=== PATIENT | male | born 1985 | race Caucasian/White ===

== ENCOUNTER 2017-09-28 14:49 | Emergency (ER) | payer BC, OTHER ==
[~2017-09-28 14:49] MED LIST: ASPI-390 PO; CIPR-255 PO; IBUP-103 PO; SUMA100T16 PO; [UNRECOGNIZED DRUG - CODE] PO
[2017-09-28 14:54] VITALS: TEMP 36.7
[2017-09-28] MEDS ORDERED: FLNIN/ NAE (15:54)
[2017-09-28] MEDS ORDERED: AMT25 PO (15:54)
[2017-09-28] MEDS ORDERED: IMT100 PO (15:54)
[2017-09-28] MEDS ORDERED: PHEN-876 PO (16:10)
[2017-09-28] MEDS ORDERED: CIPR-255 PO (16:10)
--- NOTE | 2017-09-28 16:10 | EMERGENCY ROOM VISIT NOTE ---
History First contact with patient: 15:03 Chief Complaint: URINARY SYMPTOMS Stated Complaint: BELIEVE TO HAVE UTI History of Present Illness The patient is a 32 year old male who presents to the Emergency Room with complaints of urinary symptoms. The patient reports that he woke up this morning and noticed that he felt increased urgency to urinate. He denies any dysuria. He states that he feels like he has a full bladder and is not emptying his bladder fully. He rates this discomfort a 4/10. He denies any pain in his abdomen or back. He does report he has passed a kidney stone before , but never had any symptoms until he passed the stone. He is in a monogamous relationship and denies any concern for STI's. He denies any history of urinary issues. He denies any fevers or penile discharge. Review of Systems A complete 10 point review of systems was reviewed with the patient with pertinent positives and negatives as per history of present illness. All else were negative. Past Medical/Surgical History Medical Problems: (1) Diverticulitis (2) Migraine Surgical Problems: (1) H/O laminectomy (2) S/P appendectomy (3) S/P tonsillectomy Family History No pertinent family history Social History Smoking Status: Never Smoker Alcohol Use: none Drug Use: none Marital Status: Housing Status: lives with family Occupation Status: employed Current/Historical Medications Scheduled Amitriptyline HCl (Amitriptyline HCl), 25 MG PO HS Ciprofloxacin Hcl (Cipro), 500 MG PO BID Ondasetron Odt (Zofran Odt), 4 MG SL Q6H Phenazopyridine HCl (Pyridium), 200 MG PO TID Tamsulosin Hcl (Flomax), 0.4 MG PO DAILY Scheduled PRN Vtdnfyp-Mxyuywuqgdrhh-Shqxnrcy (Excedrin Migraine), 1 TAB PO UD PRN for Migraine Fluticasone Propionate (Fluticasone Propionate), 2 SPRAYS JOSE DAILY PRN for Allergy Symptoms Oxycodone Ir (Roxicodone Ir), 1-2 TAB PO Q4H PRN for Pain Sumatriptan Succinate (Imitrex), 100 MG PO Q2H PRN for Migraine Physical Exam Vital Signs Date Time Temp Pulse Resp B/P (MAP) Pulse Ox O2 Delivery O2 Flow Rate FiO2 09/28/17 16:32 80 16 153/89 98 09/28/17 14:54 36.7 69 18 135/99 99 Room Air Physical Exam VITALS: Vitals are noted on the nurse's note and reviewed by myself. Vital signs stable. GENERAL: This is a 32-year-old male, in no acute distress, nondiaphoretic, well- developed well-nourished. HEART: Regular rate and rhythm without murmurs gallops or rubs. LUNGS: Clear to auscultation bilaterally without wheezes, rales or rhonchi. ABDOMEN: Soft, nontender to palpation. MUSCULOSKELETAL: No CVA tenderness. NEURO: Patient was alert and oriented to person place and time. Medical Decision & Procedures Laboratory Results Test 09/28/17 15:04 Urine Color DK YELLOW Urine Appearance CLEAR (CLEAR) Urine pH 6.0 (4.5-7.5) Urine Specific [place] 1.027 (1.000-1.030) Urine Protein 1+ (NEG) Urine Glucose (UA) NEG (NEG) Urine Ketones NEG (NEG) Urine Occult Blood 3+ (NEG) Urine Nitrite NEG (NEG) Urine Bilirubin NEG (NEG) Urine Urobilinogen NEG (NEG) Urine Leukocyte Esterase NEG (NEG) Urine WBC (Auto) 1-5 /hpf (0-5) Urine RBC (Auto) >30 /hpf (0-4) Urine Hyaline Casts (Auto) 0 /lpf (0-5) Urine Epithelial Cells (Auto) 5-10 /lpf (0-5) Urine Bacteria (Auto) NEG (NEG) Medications Administered Medications (Trade) Dose Ordered Sig/Alexandra Route Start Time Stop Time Status Last Admin Dose Admin Ciprofloxacin (Cipro 500MG Home Pack) 1 homepack UD ONCE PO 09/28/17 16:15 09/28/17 16:16 DC 09/28/17 16:25 1 HOMEPACK Phenazopyridine HCl (Phenazopyridine HCl 200MG Home Pack) 1 homepack UD ONCE PO 09/28/17 16:15 09/28/17 16:16 DC 09/28/17 16:25 1 HOMEPACK Medical Decision Differential diagnosis includes UTI, kidney stone, STI, prostatitis, among others. The patient was evaluated as above. He presents with a feeling of increased urgency to urinate. He has no dysuria. He has no pain. Bladder scan showed no retention. Urinalysis revealed 3+ blood and 5-10 epithelial cells. I discussed with the patient that this could possibly represent an early kidney stone, although would not recommend further testing given the patient has no pain at this time. Patient will be covered with ciprofloxacin in case this is an early hemorrhagic cystitis. Culture was sent and is pending. He was advised to follow-up with his PCP this week for a recheck. He verbalized understanding of my assessment and treatment plan and was discharged home in good condition. Medication Reconcilliation Current Medication List: was personally reviewed by me Blood Pressure Screening Patient's blood pressure: Elevated blood pressure Blood pressure disposition: Elevated BP felt to be situational Impression Primary Impression: Symptoms of urinary tract infection Departure Information Dispostion Home / Self-Care Condition GOOD Prescriptions Ciprofloxacin Hcl (CIPRO) 500 Mg Tab 500 MG PO BID for 7 Days, #14 TAB Prov: Clarice Patel PA-C 09/28/17 Phenazopyridine HCl (Pyridium) 200 Mg Tab 200 MG PO TID for 2 Days, #6 TAB Prov: Clarice Patel PA-C 09/28/17 Referrals No Doctor, Assigned (PCP) Patient Instructions [facility] Additional Instructions You have been treated in the Emergency Department for a possible Urinary Tract Infection (UTI). You have been prescribed Ciprofloxacin to be taken twice daily as prescribed. This is an antibiotic. All antibiotics have the potential to cause diarrhea. Stop this medication and contact a medical provider if you were to develop any significant adverse side effects including: wheezing, shortness of breath, passing out, vomiting, or a diffuse rash. Always take antibiotics as directed and COMPLETE the ENTIRE course regardless of the improvement of your symptoms. You have been prescribed Pyridium to be taken as prescribed. This medicine will help with the urinary symptoms that you have been experiencing. Be aware that Pyridium may turn your urine a red-orange or brown color. This effect is harmless. Drink plenty of water and stay well hydrated. As with any trip to the Emergency Department, you should follow-up with your Primary Care Provider from today's visit. Return to the emergency department if your symptoms persist despite treatment plan outlined above or if the following symptoms occur: increased fevers, chills , low back pain, nausea/vomiting, or blood in your urine.
[2017-09-28] MEDS ORDERED: CIPROFLOXACIN 500MG HOME PACK PO ONE (16:15)
[2017-09-28] MEDS ORDERED: PHENAZOPYRIDINE HOME PACK 200 MG VIAL PO ONE (16:15)
[2017-09-28 16:32] VITALS: BP 153/89; PULSE 80; O2SAT 98
[2017-09-28] MEDS ORDERED: OXYC1TAB3 PO (22:41)
[2017-09-28] MEDS ORDERED: TAMS0.4C38 PO (22:43)
[2017-09-28] MEDS ORDERED: ONDA4TAB10 SL (22:43)
== END 2017-09-28 16:32 | disposition home or self-care (01) ==
LOC: C.EDB 14:50 → C.EDC 16:32
DX: R39.15 Urgency of urination (principal); Z87.442 Personal history of urinary calculi; Z79.899 Other long term (current) drug therapy

== ENCOUNTER 2017-09-28 20:07 | Emergency (ER) | payer OTHER ==
[~2017-09-28] VITALS: Ht 182.9 cm; Wt 97.6 kg
[~2017-09-28 20:07] MED LIST changes: +AMT25 PO; +FLNIN/ NAE; +IMT100 PO; +PHEN-876 PO
[2017-09-28 20:18] VITALS: TEMP 36.8; Ht 182.9 cm; Wt 97.6 kg
[2017-09-28 20:38] LABS: BASO % 0.2 %; BASO ABS # 0.02 K/uL (0-0.2); EOS % 0.9 %; EOS ABS # 0.07 K/uL (0-0.5); HEMATOCRIT 46.3 % (42-52); HEMOGLOBIN 16.4 g/dL (14.0-18.0); IG# 0.06 K/uL (0.00-0.02); LYMPH % 29.9 %; LYMPH ABS # 2.42 K/uL (1.2-3.4); MEAN CORPUSCULAR HEMOGLOBIN 29.4 pg (25-34); MEAN CORPUSCULAR HGB CONC 35.4 g/dl (32-36); MEAN PLATELET VOLUME 8.8 fL (7.4-10.4); MONO % 4.3 %; MONO ABS # 0.35 K/uL (0.11-0.59); NEUT ABS # 5.17 K/uL (1.4-6.5); PLATELET COUNT 209 K/uL (130-400); RED CELL DISTRIBUTION WIDTH CV 12.3 % (11.5-14.5); RED CELL DISTRIBUTION WIDTH SD 37.2 fL (36.4-46.3); WHITE BLOOD COUNT 8.09 K/uL (4.8-10.8)
--- NOTE | 2017-09-28 20:52 | DIAGNOSTIC IMAGING REPORT ---
ABD/PELVIS WITHOUT FOR STONE CT DOSE: 969.85 mGy.cm HISTORY: Flank pain right sided abd pain, hematuria TECHNIQUE: Multiaxial CT images of the abdomen and pelvis were performed without the use of intravenous and oral contrast according to the standard department stone protocol. A dose lowering technique was utilized adhering to the principles of ALARA. COMPARISON STUDY: 08/28/2015 FINDINGS: Lung bases are clear. Fatty infiltration of the liver. Slight fullness right ureter and right renal collecting system compared to the left. 2 mm nonobstructing calcification lower pole right kidney. Left kidney is negative for calcification. Pancreas is unremarkable. 3 mm partially obstructing calculus right ureterovesical junction. Bladder otherwise is midline. No free fluid within the pelvic cul-de-sac. Mild chronic sigmoid diverticulosis. No evidence for acute diverticulitis. The appendix appears unremarkable. IMPRESSION: 1. 3 mm partially obstructing calculus distal right ureter at the right ureteral vesicle junction. 2. Mild fullness right renal collecting system and right ureter. 3. Fatty infiltration of liver. 4. Sigmoid diverticulosis. The above report was generated using voice recognition software. It may contain grammatical, syntax or spelling errors. Electronically signed by: Stevan Smith M.D. 09/28/2017 8:51 PM Dictated Date/Time: 09/28/2017 8:49 PM
[2017-09-28 20:55] LABS: ALBUMIN 3.6 gm/dl (3.4-5.0); CALCIUM 8.7 mg/dl (8.5-10.1); CREATININE 0.96 mg/dl (0.60-1.40); POTASSIUM 3.4 mmol/L (3.5-5.1)
[2017-09-28] MEDS ORDERED: MoRPHine SULFATE 10 MG/ML CARP/VIAL IV STA (21:35)
[2017-09-28] MEDS ORDERED: SODIUM CHLORIDE 0.9% 1000ML 1,000 ML IV STA (21:35)
[2017-09-28] MEDS ORDERED: KETOROLAC TROMETHAMINE 30 MG/ML VIAL IV STA (21:35)
[2017-09-28] MEDS ORDERED: ONDANSETRON HOME PACK 4MG OD TAB PO ONE (22:15)
[2017-09-28] MEDS ORDERED: TAMSULOSIN HCL 0.4 MG CAP PO ONE (22:15)
[2017-09-28] MEDS ORDERED: OXYCODONE IR HOME PACK PO ONE (22:15)
[2017-09-28 22:22] VITALS: BP 127/89; PULSE 88; O2SAT 99
[2017-09-28] MEDS ORDERED: OXYC1TAB3 PO (22:41)
[2017-09-28] MEDS ORDERED: TAMS0.4C38 PO (22:43)
[2017-09-28] MEDS ORDERED: ONDA4TAB10 SL (22:43)
--- NOTE | 2017-09-28 22:44 | EMERGENCY ROOM VISIT NOTE ---
History First contact with patient: 20:11 Chief Complaint: URINARY SYMPTOMS Stated Complaint: AB PAIN Nursing Triage Summary: RLTorsten pain. was seen in ED earlier today. History of Present Illness The patient is a 32 year old male who presents to the Emergency Room with complaints of severe pain in his right lower abdomen. The patient was seen here earlier today by myself for a feeling of incomplete emptying of his bladder. He states that he returned home and approximately 1 hour to arrival, developed a sudden severe pain in his right lower abdomen. He had one episode of diarrhea. The pain radiated into his pelvis. He denies any back pain. He has been nauseous but has not vomited. The patient reports a history of an appendectomy. He denies any history of similar symptoms to this. He did not take any medication for his pain. He rates his initial discomfort a 10/10 and states the pain is sharp. He states the pain has improved somewhat since then and now rates the discomfort a 6/10. Review of Systems A complete 10 point review of systems was reviewed with the patient with pertinent positives and negatives as per history of present illness. All else were negative. Past Medical/Surgical History Medical Problems: (1) Diverticulitis (2) Migraine Surgical Problems: (1) H/O laminectomy (2) S/P appendectomy (3) S/P tonsillectomy Family History No pertinent family history Social History Smoking Status: Former Smoker Alcohol Use: none Drug Use: none Marital Status: Housing Status: lives with family Occupation Status: employed Current/Historical Medications Scheduled Amitriptyline HCl (Amitriptyline HCl), 25 MG PO HS Ciprofloxacin Hcl (Cipro), 500 MG PO BID Ondasetron Odt (Zofran Odt), 4 MG SL Q6H Phenazopyridine HCl (Pyridium), 200 MG PO TID Tamsulosin Hcl (Flomax), 0.4 MG PO DAILY Scheduled PRN Uuohsid-Dfitnntpjrdnq-Ihnpbtoh (Excedrin Migraine), 1 TAB PO UD PRN for Migraine Fluticasone Propionate (Fluticasone Propionate), 2 SPRAYS JOSE DAILY PRN for Allergy Symptoms Oxycodone Ir (Roxicodone Ir), 1-2 TAB PO Q4H PRN for Pain Sumatriptan Succinate (Imitrex), 100 MG PO Q2H PRN for Migraine Physical Exam Vital Signs Date Time Temp Pulse Resp B/P (MAP) Pulse Ox O2 Delivery O2 Flow Rate FiO2 09/28/17 22:22 88 18 127/89 99 Room Air 09/28/17 21:50 94 16 135/96 99 Room Air 09/28/17 20:18 36.8 78 18 144/78 98 Room Air Physical Exam VITALS: Vitals are noted on the nurse's note and reviewed by myself. Vital signs stable. GENERAL: This is a 32-year-old male, in no acute distress but uncomfortable appearing, well-developed well-nourished. SKIN: No rashes. HEART: Regular rate and rhythm without murmurs gallops or rubs. LUNGS: Clear to auscultation bilaterally without wheezes, rales or rhonchi. ABDOMEN: Positive bowel sounds x 4. Tenderness to palpation in the right lower quadrant. No CVA tenderness. NEURO: Patient was alert and oriented to person place and time. Medical Decision & Procedures ER Provider Diagnostic Interpretation: ABD/PELVIS WITHOUT FOR STONE CT DOSE: 969.85 mGy.cm HISTORY: Flank pain right sided abd pain, hematuria TECHNIQUE: Multiaxial CT images of the abdomen and pelvis were performed without the use of intravenous and oral contrast according to the standard department stone protocol. A dose lowering technique was utilized adhering to the principles of ALARA. COMPARISON STUDY: 08/28/2015 FINDINGS: Lung bases are clear. Fatty infiltration of the liver. Slight fullness right ureter and right renal collecting system compared to the left. 2 mm nonobstructing calcification lower pole right kidney. Left kidney is negative for calcification. Pancreas is unremarkable. 3 mm partially obstructing calculus right ureterovesical junction. Bladder otherwise is midline. No free fluid within the pelvic cul-de-sac. Mild chronic sigmoid diverticulosis. No evidence for acute diverticulitis. The appendix appears unremarkable. IMPRESSION: 1. 3 mm partially obstructing calculus distal right ureter at the right ureteral vesicle junction. 2. Mild fullness right renal collecting system and right ureter. 3. Fatty infiltration of liver. 4. Sigmoid diverticulosis. Laboratory Results 09/28/17 20:23 Red Blood Count 5.58, Mean Corpuscular Volume 83.0, Mean Corpuscular Hemoglobin 29.4, Mean Corpuscular Hemoglobin Concent 35.4, Mean Platelet Volume 8.8, Neutrophils (%) (Auto) 64.0, Lymphocytes (%) (Auto) 29.9, Monocytes (%) (Auto) 4.3, Eosinophils (%) (Auto) 0.9, Basophils (%) (Auto) 0.2, Neutrophils # (Auto) 5.17, Lymphocytes # (Auto) 2.42, Monocytes # (Auto) 0.35, Eosinophils # (Auto) 0.07, Basophils # (Auto) 0.02 09/28/17 20:23 Test 09/28/17 20:23 09/28/17 21:14 White Blood Count 8.09 K/uL (4.8-10.8) Red Blood Count 5.58 M/uL (4.7-6.1) Hemoglobin 16.4 g/dL (14.0-18.0) Hematocrit 46.3 % (42-52) Mean Corpuscular Volume 83.0 fL (80-100) Mean Corpuscular Hemoglobin 29.4 pg (25-34) Mean Corpuscular Hemoglobin Concent 35.4 g/dl (32-36) Platelet Count 209 K/uL (130-400) Mean Platelet Volume 8.8 fL (7.4-10.4) Neutrophils (%) (Auto) 64.0 % Lymphocytes (%) (Auto) 29.9 % Monocytes (%) (Auto) 4.3 % Eosinophils (%) (Auto) 0.9 % Basophils (%) (Auto) 0.2 % Neutrophils # (Auto) 5.17 K/uL (1.4-6.5) Lymphocytes # (Auto) 2.42 K/uL (1.2-3.4) Monocytes # (Auto) 0.35 K/uL (0.11-0.59) Eosinophils # (Auto) 0.07 K/uL (0-0.5) Basophils # (Auto) 0.02 K/uL (0-0.2) RDW Standard Deviation 37.2 fL (36.4-46.3) RDW Coefficient of Variation 12.3 % (11.5-14.5) Immature Granulocyte % (Auto) 0.7 % Immature Granulocyte # (Auto) 0.06 K/uL (0.00-0.02) Anion Gap 5.0 mmol/L (3-11) Est Creatinine Clear Calc Drug Dose 136.2 ml/min Estimated GFR () 122.4 Estimated GFR (Non- 105.6 BUN/Creatinine Ratio 12.1 (10-20) Calcium Level 8.7 mg/dl (8.5-10.1) Total Bilirubin 0.4 mg/dl (0.2-1) Aspartate Amino Transf (AST/SGOT) 41 U/L (15-37) Alanine Aminotransferase (ALT/SGPT) 104 U/L (12-78) Alkaline Phosphatase 75 U/L (45-117) Total Protein 7.0 gm/dl (6.4-8.2) Albumin 3.6 gm/dl (3.4-5.0) Globulin 3.4 gm/dl (2.5-4.0) Albumin/Globulin Ratio 1.1 (0.9-2) Lipase 88 U/L (73-393) Urine Color ORANGE Urine Appearance SLIGHTLY CLOUDY (CLEAR) Urine pH (4.5-7.5) Urine Specific [place] 1.022 (1.000-1.030) Urine Protein (NEG) Urine Glucose (UA) (NEG) Urine Ketones (NEG) Urine Occult Blood (NEG) Urine Nitrite (NEG) Urine Bilirubin (NEG) Urine Urobilinogen (NEG) Urine Leukocyte Esterase (NEG) Urine WBC (Auto) 10-30 /hpf (0-5) Urine RBC (Auto) >30 /hpf (0-4) Urine Hyaline Casts (Auto) 0 /lpf (0-5) Urine Epithelial Cells (Auto) 5-10 /lpf (0-5) Urine Bacteria (Auto) 1+ (NEG) Urine Mucus PRESENT (NONE PRSENT) Medications Administered Medications (Trade) Dose Ordered Sig/Alexandra Route Start Time Stop Time Status Last Admin Dose Admin Ketorolac Tromethamine (Toradol Inj) 30 mg NOW STAT IV 09/28/17 21:35 09/28/17 21:37 DC 09/28/17 21:48 30 MG Sodium Chloride 1,000 ml @ 999 mls/hr Q1H1M STAT IV 09/28/17 21:35 09/28/17 22:35 DC 09/28/17 21:35 999 MLS/HR Morphine Sulfate (MoRPHine SULFATE INJ) 6 mg NOW STAT IV 09/28/17 21:35 09/28/17 21:37 DC 09/28/17 21:48 6 MG Ondansetron HCl (ZOFRAN ODT 4MG Home Pack) 1 homepack UD ONCE PO 09/28/17 22:15 09/28/17 22:16 DC 09/28/17 22:15 1 HOMEPACK Oxycodone HCl (Roxicodone Immediate Rel 5MG Home Pack) 1 homepack UD ONCE PO 09/28/17 22:15 18 22:16 DC 09/28/17 22:15 1 HOMEPACK Tamsulosin HCl (Flomax Cap) 0.4 mg NOW ONCE PO 09/28/17 22:15 09/28/17 22:16 DC 09/28/17 22:20 0.4 MG ED Course The patient was evaluated as above. Labs were drawn and IV access was obtained. Patient was medicated with 30 mg Toradol, 6 mg morphine and 1 L normal saline solution. CT of the abdomen and pelvis was performed and read by radiology as above. Patient was reevaluated and was feeling much better. Discharge instructions were reviewed with the patient. The patient verbalized understanding of my assessment and treatment plan and was discharged home in good condition. Medical Decision Differential diagnosis includes kidney stone, pyelonephritis, UTI, musculoskeletal pain, colitis, gastroenteritis, among others. The patient is a 32-year-old male who presents today complaining of right lower quadrant abdominal pain which had a sudden onset. The patient was seen earlier in the day by myself with urinary symptoms. Labs revealed no leukocytosis or anemia. Kidney function within normal limits. Urinalysis consistent with contamination versus infection. CT showed a 3 mm stone at the right UVJ. Patient was treated in the emergency department as noted above. He was given a urine strainer as well as prescriptions for pain medication, nausea medication and Flomax. He was given instructions for primary care and urology follow-up. Based on the patient's presentation and work up, I feel the patient is stable for outpatient treatment. The patient was educated to return to the emergency department for any worsening of their current condition or new/concerning symptoms. He will follow up with his PCP. [place] Drug Monitoring Program Search Results: patient reviewed within database, no issues identified Medication Reconcilliation Current Medication List: was personally reviewed by me Blood Pressure Screening Patient's blood pressure: Elevated blood pressure Blood pressure disposition: Elevated BP felt to be situational Impression Primary Impression: Ureteral stone Departure Information Dispostion Home / Self-Care Condition GOOD Prescriptions Tamsulosin Hcl (FLOMAX) 0.4 Mg Cap 0.4 MG PO DAILY for 10 Days, #10 CAP Prov: Clarice Patel PA-C 09/28/17 Ondasetron Odt (ZOFRAN ODT) 4 Mg Tab 4 MG SL Q6H for Nausea, #16 TAB Prov: Clarice Patel PA-C 09/28/17 Oxycodone Ir (Roxicodone Ir) 5 Mg Tab 1-2 TAB PO Q4H Y for Pain, #20 TAB For Initial Treatment Prov: Clarice Patel PA-C 09/28/17 Referrals No Doctor, Assigned (PCP) Cody East MD Patient Instructions Kidney Stones - [facility], [facility] Additional Instructions You have been treated in the Emergency Department today for a Kidney Stone ( Nephrolithiasis). You have received pain medicine in the emergency department which impairs your ability to operate a vehicle. It is illegal for you to drive after receiving these medicines. You have been prescribed OxyIR to be used for pain control. This is a narcotic medication. You cannot drive or consume alcohol while on this medicine. This medicine should only be used for pain that cannot be controlled with over-the- counter pain medicines. You have been prescribed Zofran to be used for any nausea or vomiting. Take as prescribed. You have been prescribed Flomax 0.4 mg to be taken ONCE daily. This medicine has been prescribed as it can help relax the smooth muscles of the urinary tract increasing transit time of the kidney stone. For pain control, you can use the following duhe-the-obvsvwc medicines (if >12 yo): - Regular strength (325mg/tab) Tylenol (acetaminophen) 2 tabs every 4-6 hours as needed. Do not exceed 12 tablets in a 24 hour period. Avoid taking more than 4 grams (4000 mg) of Tylenol per day. This includes any other sources of acetaminophen you may take on a regular basis. - Regular strength (200 mg/tab) Advil (ibuprofen) 1-2 tabs every 4-6 hours as needed. Do not exceed a dose of 3200 mg per day. You have been provided a strainer and specimen collection cup. You should strain your urine to collect any passed stones. Your stones can be placed into the specimen cup and taken to your Urologist for further evaluation. Follow-up with your primary care provider this week for recheck. If you do not pass the stone in the next few days, contact the urologist to schedule a follow-up appointment. Return to the Emergency Department if your symptoms persist despite the treatment plan outlined above or if you develop the following symptoms: intractable pain, fever, chills, or large amounts of blood in your urine.
== END 2017-09-28 22:51 | disposition home or self-care (01) ==
LOC: EDBD 20:07 → C.EDB 20:08
DX: N20.1 Calculus of ureter (principal); K57.92 Diverticulitis of intestine, part unspecified, without perforation or abscess without bleeding; Z87.891 Personal history of nicotine dependence; K76.0 Fatty (change of) liver, not elsewhere classified

== ENCOUNTER 2020-09-13 09:22 | Inpatient (IN) ==
--- NOTE | 2020-09-08 15:31 | PAT Medication Instructions ---
Medication Instructions Date of Service September 08, 2020 Home Medications fluoxetine 40 mg PO QAM sumatriptan succinate 100 mg PO UD PRN propranolol 80 mg PO QAM etodolac 200 mg PO BID multivitamin 1 tab PO QAM ASK your surgeon for instructions etodolac 200 mg PO BID DO NOT take the morning of surgery multivitamin 1 tab PO QAM Take morning of surgery With a small sip of water, OTHERWISE NOTHING TO EAT OR DRINK AFTER MIDNIGHT: fluoxetine 40 mg PO QAM sumatriptan succinate 100 mg PO UD PRN (if needed) propranolol 80 mg PO QAM Take evening before surgery sumatriptan succinate 100 mg PO UD PRN (if needed) Other Notes If you have any questions please call us at [phone] or [phone] or [phone] or [phone]
--- NOTE | 2020-09-12 08:36 | Anesthesiology Consultation ---
Date of Service September 12, 2020 Assessment & Plan (1) Encounter for pre-operative examination: Chart Review Chart Review: Acceptable Risk for Surgery (pending preop Covid testing ) and Patient NOT seen in Pre Admission Testing Per nursing assessment 09/07/20, patient denies any recent travel. No known Covid positive contacts or Covid related symptoms. Pt denies known Covid infection in the past 90 days. Pt following up with surgeon's office re: preop Covid testing= awaiting results. History Surgery Operation Date: 09/13/20 11:05 Proposed Procedures p L4-L5 Decompression Fusion, Possible L5-S1, Spinal Cord Monitoring - Shaun Ac DO Height/Weight Height: 6 ft Weight: 119.295 kg Allergies Allergy/AdvReac Type Severity Reaction Status Date / Time No Known Allergies Allergy Unverified 09/07/20 09:15 Medications Home Medications Medication Instructions Recorded Confirmed Last Taken fluoxetine 40 mg PO QAM 12/14/18 09/07/20 12/14/18 sumatriptan succinate 100 mg PO UD PRN 12/14/18 09/07/20 12/12/18 propranolol 80 mg PO QAM 08/21/20 09/07/20 Unknown etodolac 200 mg PO BID 09/07/20 09/07/20 Unknown multivitamin 1 tab PO QAM 09/07/20 09/07/20 Unknown Past Medical History Medical History Anxiety Degenerative disc disease Fatty liver History of kidney stones Migraine Past Family History Family History Grandmother (Maternal) Family history of diabetes mellitus Other No family history of adverse response to anesthesia Past Surgical History Surgical History H/O elbow surgery LEFT (HARDWARE REMOVED) History of appendectomy History of colonoscopy History of esophagogastroduodenoscopy (EGD) History of lumbar laminectomy History of myringotomy History of tonsillectomy and adenoidectomy [place] teeth removed Social History Smoking Status: Former smoker tobacco type: cigarettes and smokeless tobacco Do You Dip or Chew Tobacco: No (QUIT 4 YEARS) Smoking End Date: 6 YEARS AGO Hx Alcohol Use: No Hx Substance Use: Yes substance use type: marijuana Last Used Substance Other:: "HAS TRIED IN THE PAST" (ADVISED) Testing Laboratory Results Blood Type O Negative 09/11/20 14:00 Antibody Screen NEGATIVE 09/11/20 14:00 Laboratory Tests 09/11/20 09/11/20 09/11/20 14:00 14:00 14:00 WBC 7.48 Hgb 16.8 Hct 48.2 Plt Count 270 PT 9.5 INR 0.9 Sodium 141 Potassium 4.1 Chloride 108 H Carbon Dioxide 30 BUN 14 Creatinine 1.07 Glucose 92 09/11/20= UA: Negative Electrocardiogram Date: 09/11/20 Findings: + NSR @ (65bpm) Normal EKG. Chest X-Ray Date: 09/11/20 Findings: + NAD
[~2020-09-13 09:22] MED LIST changes: +ACETAMINOPHEN 500 MG TAB PO SCH; -AMT25 PO; -ASPI-390 PO; -CIPR-255 PO; +CeleBREX 200 MG CAP PO SCH; -FLNIN/ NAE; +GABAPENTIN 900 MG DOSE PO SCH; -IBUP-103 PO; -IMT100 PO; +LR 15ML/HR IV SCH; -PHEN-876 PO; -SUMA100T16 PO; -[UNRECOGNIZED DRUG - CODE] PO; +ceFAZolin 2000MG 2,000 MG/15 ML SYR IV SCH
[2020-09-13] MEDS ORDERED: ePHEDrine sulfate 50 MG/ML AMP IV PRN (10:43)
[2020-09-13] MEDS ORDERED: fentaNYL citrate 100 MCG/2 ML VIAL IV PRN (10:43)
[2020-09-13] MEDS ORDERED: HYDROmorphone INJ 2 MG/ML SYR/VIAL IV PRN (10:43)
[2020-09-13] MEDS ORDERED: ATROPINE SULFATE 0.1 MG/ML 10ML SYR IV PRN (10:43)
[2020-09-13] MEDS ORDERED: ONDANSETRON INJ 2 MG/ML 2 ML VIAL IV PRN ×2 (10:43→15:27)
[2020-09-13] MEDS ORDERED: PROMETHAZINE HCL 12.5 MG in SODIUM CHLORIDE 0.9% 50 ML IV PRN ×2 (10:43→15:27)
[2020-09-13] MEDS ORDERED: MIDAZOLAM HCL 1 MG/ML 2ML VIAL ONE (10:45)
[2020-09-13] MEDS ORDERED: fentaNYL citrate 100 MCG/2 ML VIAL ONE ×2 (10:45)
--- NOTE | 2020-09-13 10:49 | History & Physical Bridge Note ---
Date of Service September 13, 2020 History & Physical Bridge Note I have examined the patient, reviewed the History & Physical and in the interval since the performance of the History & Physical I have noted the following changes of clinical significance: no changes noted
--- NOTE | 2020-09-13 10:50 | History & Physical Report ---
Date of Service September 13, 2020 Assessment & Plan (1) Lumbar disc herniation with radiculopathy: Admission and Anticipated Discharge Date Admission Date: L4-L5 decompression fusion, possible L5-S1 History of Present Illness Chief Complaint: Back and leg pain Primary Care Provider: Prasad Esparza MD This is a 35-year-old male presents with chronic persistent back and leg pain after failing extensive course of nonoperative care is here for surgical invention. Allergies Allergy/AdvReac Type Severity Reaction Status Date / Time No Known Allergies Allergy Unverified 09/13/20 09:46 Home Medications Medication Instructions Recorded Confirmed Type fluoxetine 40 mg PO QAM 12/14/18 09/13/20 History sumatriptan succinate 100 mg PO UD PRN 12/14/18 09/13/20 History propranolol 80 mg PO QAM 08/21/20 09/13/20 History etodolac 200 mg PO BID 09/07/20 09/13/20 History multivitamin 1 tab PO QAM 09/07/20 09/13/20 History Past Med/Surg History Medical History Anxiety Degenerative disc disease Fatty liver History of kidney stones Migraine Surgical History H/O elbow surgery LEFT (HARDWARE REMOVED) History of appendectomy History of colonoscopy History of esophagogastroduodenoscopy (EGD) History of lumbar laminectomy History of myringotomy History of tonsillectomy and adenoidectomy [place] teeth removed Family History Grandmother (Maternal) Family history of diabetes mellitus Other No family history of adverse response to anesthesia Social History Smoking Status: Former smoker Smoking End Date: 6 YEARS AGO; Second Hand Exposure: Yes (IN THE PAST); Do You Dip or Chew Tobacco: No (QUIT 4 YEARS); Tobacco Cessation Education Requested by Patient: No Hx Alcohol Use: No Hx Substance Use: Yes Last Used Substance Other:: "HAS TRIED IN THE PAST" (ADVISED) Preferred Language: Belarusian [employer] Associate Required: No Beliefs That Will Affect Care: None Current Living Situation: Family Feels Safe at Home: Yes Safety Concerns: Feels Safe At This Time Assistive Devices: Glasses Physical Exam Physical Exam: Patient is alert and oriented Heart regular in rhythm Lungs clear to auscultation Results & Data ([facility]) Vital Signs (Past 12 Hours) Vital Signs Temp Pulse Resp BP Pulse Ox 09/13/20 09:52 36.8 C 72 20 147/98 H 98
[2020-09-13] MEDS ORDERED: BACITRACIN INJ 50,000 UNIT VIAL ONE (11:04)
[2020-09-13] MEDS ORDERED: BUPIVACAINE/EPINEPHRINE 0.5% MPF 1:200,000 30 ML VIAL ONE (11:04)
[2020-09-13] MEDS ORDERED: LARYING-O-JET KIT (LTA) ONE (11:11)
[2020-09-13] MEDS ORDERED: ROCURONIUM BROMIDE 10 MG/ML 5 ML VIAL IV ONE (11:49)
[2020-09-13] MEDS ORDERED: LIDOCAINE HCL 2% 2 ML VIAL/AMP(20MG/ML) INFIL ONE (11:49)
[2020-09-13] MEDS ORDERED: HYDROmorphone INJ 2 MG/ML SYR/VIAL ONE (11:49)
[2020-09-13] MEDS ORDERED: DEXAMETHASONE SOD INJ 4 MG/ML VIAL ONE ×2 (11:49)
[2020-09-13] MEDS ORDERED: ONDANSETRON INJ 2 MG/ML 2 ML VIAL ONE (11:49)
[2020-09-13] MEDS ORDERED: PROPOFOL IV EMULSION 10 MG/ML 20 ML VIAL IV ONE (11:49)
[2020-09-13] MEDS ORDERED: KETAMINE 50 MG/5 ML SYRINGE ONE (11:50)
[2020-09-13] MEDS ORDERED: FLOSEAL HEMOSTATIC MATRIX 10ML TOP ONE (13:35)
--- NOTE | 2020-09-13 13:47 | Operative Report ---
Post Operative Report Pre & Post Diagnosis Operation Date: 09/13/20 11:05 Pre-Op Diagnosis: Lumbar Disc Herniation with Radiculopathy Post-Op Diagnosis: Lumbar Disc Herniation with Radiculopathy Iatrogenic instability at L4-L5 L5-S1 I identified the patient and participated in the time-out.: Yes Procedure Operation Date: 09/13/20 11:05 Actual Procedures #1 revision decompression medial facetectomy foraminotomy L4-5 and L5-S1. #2 posterior spinal fusion L4-5 L5-S1. #3 placement posterior instrumentation L4-5 L5-S1. #4 interbody fusion L4-5 L5-S1. #5 placed a peek cage 12 x 26 mm at L4- 5 and L5-S1 peer #6 placement locally harvested morselized autograft in the posterior gutters. #7 placement of I factor in the interbody spaces and posterior gutters. Surgeon Shaun Ac, Superintendent [employer]enting Managing Tanesha Li Estimated Blood Loss 250 Findings See Below Patient is 6 feet tall weighing over 121 kg with BMI in excess of 36. The patient's body habitus did contribute to significant technical difficulty requiring her deepest retractors longus instruments in order to perform his procedure. This at least 50% increase to the operative time. Specimens None Indications This is a 35-year-old male who presents with marked clotting status with bilateral radiculopathy and is here for surgical invention. Description of Procedure Patient was met with identified informed consent obtained. Patient was then taken to the operative suite underwent a patient placed in prone position [place] on top of the Giorgio frame. All bony prominences well-padded eyes inspected to ensure no external pressure placed upon the bed this point lumbar spine was prepped and draped in normal sterile fashion. Sharp dissection with the assistance of Bovie cautery was performed down to and exposing the remaining lamina and transverse processes of L4-L5 and sacral ala bilaterally. And performed a midline decompression at L5-S1 favoring the left lateral recess to expose a markedly compressed traversing S1 nerve root. I did compromise the facet on the left for adequate decompression. Subsequently proceed with fusion of the L5-S1 level as it did not want an unstable segment beneath a fused segment. Procedure performed revision complete laminectomy of L4 including bi lateral medial facetectomies and foraminotomies addressing all neural compression as well as recurrent disc condition on the right. I then placed pedicle screws at L4-L5 and elected to fuse L5-S1 endplate screws at S1 bilaterally with the assistance of fluoroscopy. Proper sized lovely was then placed bilaterally. By way the transforaminal approach on the left complete discectomy was performed at L5-S1. In place. To subcortical being bone and a 12 x 26 mm peek cage filled with I factor tapped in position. Then proceeded L4-[address] of a transfemoral approach on the right a complete discectomy was performed endplates curetted to subcortical being bone and the 12 x 26 mm peek cage filled with I factor tapped in position. The rods were then compressed locked in final position bilaterally. The transverse processes of L4-L5 and sacral ala burred to subcortical bleeding bone. I factor and locally harvested morselized autograft was placed in the posterior gutters. 15 round HEATHER drain inserted. The incision was then closed with 1 Vicryl the fascia 2-0 Vicryl subcutaneously and 4 Monocryl for final skin closure. Steri-Strip sterile dressings placed. Patient will continue PACU stable condition. Please note spinal cord monitoring was utilized at the procedure no changes noted. Lastly Tanesha Li was present throughout the entire procedure involved the patient positioning complex portions of the surgery and final skin closure. I attest to the content of the Intraoperative Record and any orders documented therein. Any exceptions are noted below.
--- NOTE | 2020-09-13 14:00 | Fluoroscopy Report ---
FL lumbar spine 2-3V CLINICAL HISTORY: L4-5 DECOMPRESSION/FUSION/INTERBODY/POSSIBLE L5-S1 COMPARISON STUDY: Lumbar spine MRI August 21, 2020. FLUOROSCOPY TIME: 19.8 seconds. FLUOROSCOPIC IMAGES: 2 FINDINGS: Fluoroscopy was provided during L4-L5 and L5-S1 discectomies with interbody spacer placemen t. Posterior decompression is noted with L4-S1 bilateral pedicle screw fusion. Hardware is intact. IMPRESSION: Fluoroscopy guided for L4-L5 and L5-S1 discectomies with posterior decompression and rodo ateral pedicle screw fusion. ACT 112: Negative or not required by law. Electronically signed by: Kamaljit Caro M.D. 09/13/2020 1:58 PM
--- NOTE | 2020-09-13 14:47 | Anesthesiology Progress Note ---
Date of Service September 13, 2020 Anesthesia Post Procedure Vital Signs Vital Signs: Temp Pulse Pulse Resp BP BP Pulse Ox 09/13/20 14:45 61 16 125/76 99 09/13/20 14:35 61 16 127/78 97 09/13/20 14:25 76 16 118/84 100 09/13/20 14:19 36.1 C L 70 16 132/88 100 09/13/20 09:52 36.8 C 72 20 147/98 H 98 Transfer of Care Handoff Completed per policy Notes Mental Status: alert / awake / arousable Patient Amnestic to Procedure: Yes Nausea / Vomiting: adequately controlled Pain: adequately controlled Airway Patency, RR, SpO2: stable & adequate BP & HR: stable & adequate Hydration State: stable & adequate Anesthetic Complications: no major complications apparent
[2020-09-13] MEDS ORDERED: SOD PHOSPHATE/SOD BIPHOSPHATE ENEMA 132 ML BTL PR PRN (15:27)
[2020-09-13] MEDS ORDERED: MAGNESIUM HYDROXIDE SUSP 30 ML UDC PO PRN (15:27)
[2020-09-13] MEDS ORDERED: DO NOT ADMINISTER PNEUMOCOCCAL VACCINE PRN (15:27)
[2020-09-13] MEDS ORDERED: METOCLOPRAMIDE HCL INJ 5 MG/ML 2 ML VIAL IV PRN (15:27)
[2020-09-13] MEDS ORDERED: hydrOXYzine HCl 25 MG TAB PO PRN (15:27)
[2020-09-13] MEDS ORDERED: DO NOT ADMINISTER FLU VACCINE PRN (15:27)
[2020-09-13] MEDS ORDERED: ALUMINUM/MAGNESIUM SUSP 30 ML UDC PO PRN (15:27)
[2020-09-13] MEDS ORDERED: SUMAtriptan succinate 100 MG TAB PO PRN (15:27)
[2020-09-13] MEDS ORDERED: ONDANSETRON 4 MG OD TAB PO PRN (15:27)
[2020-09-13] MEDS ORDERED: ACETAMINOPHEN 500 MG TAB PO PRN (15:27)
[2020-09-13] MEDS ORDERED: ACETAMINOPHEN 1,000 MG/100 ML VIAL IV PRN (15:27)
[2020-09-13] MEDS ORDERED: LORazepam 0.5 MG/1 ML VIAL IV PRN (15:27)
[2020-09-13] MEDS ORDERED: FAMOTIDINE 20 MG TAB PO PRN (15:27)
[2020-09-13] MEDS ORDERED: diphenhydrAMINE Capsule 25 MG CAP PO PRN (15:27)
[2020-09-13] MEDS ORDERED: bisacodyL 10 MG SUPP PR PRN (15:27)
[2020-09-13] MEDS ORDERED: NALOXONE HCL 0.4 MG/1 ML VIAL/CARP IV PRN (15:27)
[2020-09-13] MEDS ORDERED: HYDROmorphone INJ 0.5 MG/0.5 ML SYR IV PRN (15:27)
[2020-09-13] MEDS: LACTATED RINGER'S 1,000 ML IV SCH ×2 (15:53→21:19)
[2020-09-13] MEDS: HYDROmorphone INJ 1 MG/ML SYRINGE IV PRN ×3 (15:53→22:46)
[2020-09-13] MEDS: oxyCODONE HCL IR 5 MG TAB (IMMEDIATE RELEASE) PO PRN ×2 (17:12→21:18)
[2020-09-13] MEDS: ceFAZolin 2000MG 2,000 MG/15 ML SYR IV SCH (18:32)
[2020-09-13] MEDS: DOCUSATE SODIUM/SENNA 50/8.6MG TAB PO SCH (21:35)
[2020-09-13] MEDS: LORazepam 0.5 MG TAB PO PRN (22:46)
[2020-09-14] MEDS: oxyCODONE HCL IR 5 MG TAB (IMMEDIATE RELEASE) PO PRN ×5 (03:05→23:17)
[2020-09-14] MEDS: ceFAZolin 2000MG 2,000 MG/15 ML SYR IV SCH (03:06)
[2020-09-14] MEDS: HYDROmorphone INJ 1 MG/ML SYRINGE IV PRN ×4 (04:01→20:50)
[2020-09-14] MEDS: POLYETHYLENE (MIRALAX) 17 GM PACK PO SCH ×4 (04:34→23:17)
[2020-09-14 06:17] LABS: Hematocrit (blood only) 41.1 % (42-52); Hemoglobin 14.3 g/dL (14.0-18.0); Immature Granulocytes # (auto) 0.06 K/uL (0.00-0.02); Immature Granulocytes % (auto) 0.3 %; Lymphocytes # (auto) 2.04 K/uL (1.2-3.4); Lymphocytes % (auto) 11.1 %; Mean Corpuscular Hemoglobin 29.7 pg (25-34); Mean Corpuscular Hgb Conc 34.8 g/dL (32-36); Mean Corpuscular Volume 85.3 fL (80-100); Mean Platelet Volume 8.9 fL (7.4-10.4); Monocytes # (auto) 0.87 K/uL (0.11-0.59); Monocytes % (auto) 4.7 %; Neutrophils # (auto) 15.35 K/uL (1.4-6.5); Neutrophils % (auto) 83.9 %; Platelet Count 268 K/uL (130-400); RDW Coefficient of Variation 12.7 % (11.5-14.5); RDW Standard Deviation 39.7 fL (36.4-46.3); Red Blood Count 4.82 M/uL (4.7-6.1); White Blood Count 18.32 K/uL (4.8-10.8)
[2020-09-14 06:49] LABS: Calcium 8.3 mg/dl (8.5-10.1); Creatinine Clr Calc Pharmacy 137.1 ml/min; Est GFR (African American) 110.1; Potassium 3.7 mmol/L (3.5-5.1)
[2020-09-14] MEDS: PROPRANOLOL HCL 80 MG TAB PO SCH (07:34)
[2020-09-14] MEDS: FLUoxetine HCL 20 MG CAP PO SCH (07:35)
[2020-09-14] MEDS: MULTIVITAMIN TAB PO SCH (07:35)
[2020-09-14] MEDS: traMADol HCL 50 MG TABLET PO PRN (09:02)
--- NOTE | 2020-09-14 11:04 | Orthopedic Progress Note ---
Date of Service September 14, 2020 Assessment & Plan (1) Lumbar disc herniation with radiculopathy: Admission and Anticipated Discharge Date Admission Date: September 13, 2020 This time continue physical therapy monitor his HEATHER output anticipate discharge home in the next few days. Subjective Back pain controlled leg pain improved Physical Exam Physical Exam: Patient is good strength testing appears comfortable. Results & Data ([facility]) Vital Signs (Past 12 Hours) Vital Signs Temp Pulse Resp BP Pulse Ox 09/14/20 07:45 36.5 C 76 16 127/79 99 09/14/20 03:33 36.7 C 96 H 20 143/82 H 97 09/13/20 23:19 36.7 C 101 H 18 122/73 94
[2020-09-14] MEDS: DOCUSATE SODIUM/SENNA 50/8.6MG TAB PO SCH (20:54)
[2020-09-14] MEDS: LORazepam 0.5 MG TAB PO PRN (22:25)
[2020-09-15] MEDS: HYDROmorphone INJ 1 MG/ML SYRINGE IV PRN ×4 (01:31→14:01)
[2020-09-15] MEDS: oxyCODONE HCL IR 5 MG TAB (IMMEDIATE RELEASE) PO PRN ×4 (03:26→18:05)
[2020-09-15] MEDS: POLYETHYLENE (MIRALAX) 17 GM PACK PO SCH ×4 (05:33→21:45)
[2020-09-15] MEDS: dexAMETHasone 8 MG in SYRINGE 0 ML IV SCH (07:47)
[2020-09-15] MEDS: PROPRANOLOL HCL 80 MG TAB PO SCH (07:47)
[2020-09-15] MEDS: MULTIVITAMIN TAB PO SCH (07:48)
[2020-09-15] MEDS: FLUoxetine HCL 20 MG CAP PO SCH (07:48)
--- NOTE | 2020-09-15 14:04 | Orthopedic Progress Note ---
Date of Service September 15, 2020 Assessment & Plan (1) Lumbar disc herniation with radiculopathy: Admission and Anticipated Discharge Date Admission Date: September 13, 2020 This time we will continue physical therapy monitor HEATHER operatively discharge home tomorrow. Subjective Back pain is improving leg pain improved. Physical Exam Physical Exam: On exam is good strength testing peers comfortable. Results & Data ([facility]) Vital Signs (Past 12 Hours) Vital Signs Temp Pulse Resp BP Pulse Ox 09/15/20 06:30 37 C 77 18 117/76 95
[2020-09-15] MEDS: DOCUSATE SODIUM/SENNA 50/8.6MG TAB PO SCH (21:43)
[2020-09-15] MEDS: LORazepam 0.5 MG TAB PO PRN (22:59)
[2020-09-16] MEDS: oxyCODONE HCL IR 5 MG TAB (IMMEDIATE RELEASE) PO PRN ×2 (03:02→07:50)
[2020-09-16] MEDS: POLYETHYLENE (MIRALAX) 17 GM PACK PO SCH (06:41)
[2020-09-16] MEDS: traMADol HCL 50 MG TABLET PO PRN (06:44)
[2020-09-16] MEDS: PROPRANOLOL HCL 80 MG TAB PO SCH (07:51)
[2020-09-16] MEDS: MULTIVITAMIN TAB PO SCH (07:51)
[2020-09-16] MEDS: dexAMETHasone 8 MG in SYRINGE 0 ML IV SCH (07:51)
[2020-09-16] MEDS: FLUoxetine HCL 20 MG CAP PO SCH (07:51)
--- NOTE | 2020-09-16 08:37 | Discharge Summary ---
Date of Service September 16, 2020 Admission HPI Per Admitting Provider This is a 35-year-old male presents with chronic persistent back and leg pain after failing extensive course of nonoperative care is here for surgical invention. Principal Diagnosis Lumbar disc condition with radiculopathy Discharge Data Allergies Allergy/AdvReac Type Severity Reaction Status Date / Time No Known Allergies Allergy Unverified 09/13/20 09:46 Procedures Performed Operation Date: 09/13/20 11:05 Actual Procedures p L4-S1 Decompression and Fusion, Spinal Cord Monitoring(Not Applicable) - Shaun Ac DO Ordered Studies 09/13/20 11:05 FL fluoroscopy <1hr Routine [place] lumbar spine 2-3V Routine Hospital Course (1) Lumbar disc herniation with radiculopathy: Patient underwent lumbar decompression fusion tolerates well second orthopedic for postop labor postop day 1 is up and ambulating rest the postop day or 2 on postop day 3 pain well controlled HEATHER drain decreasing appropriately. Excellent strength testing. Subsequent discharge home. Discharge orders instructions from the chart for further review. Total Time Total Time Spent Total Time Spent (In Minutes): 20 minutes Discharge Plan Discharge Items Patient Disposition: Home - Self-Care Reason For Visit: Intervertebral Disc Disorders with Radiculopathy, Discharge Diagnosis: Lumbar disc condition with radiculopathy Activity: As commented below Non-emergency contact: Primary Care Provider Call non-emergency contact if: you have any medication questions Follow-up/Referrals: Prasad Esparza MD [Primary Care Provider] - Diet: Regular Addtl Attending Provider Instructions: ACTIVITY RECOMMENDATIONS: SELF CARE INSTRUCTIONS AFTER THORACIC/LUMBAR FUSIONS 1. You may walk to your tolerance. It is good exercise for your legs and back. Expect some back and intermittent leg aches and pains. 2. You may perform "counter-top" level activities (make a sandwich, shirlene with a project, etc.). 3. No bending or lifting of more than 10 pounds or back twisting of any nature (roll like a log when turning in bed). 4. You may ride in a car for 20-30 minutes at a time. No driving until after your first visit with your doctor. 5. Frequent changes of position and restricting sitting to 30 minutes at a time will help limit the amount of back spasms and stiffness you may experience. 6. You may discontinue the use of ambulatory aids (cane, crutches, etc.) once your strength and confidence allow. 7. You may bouffant curtain machine tender the shower and let water strike your incision when you arrive home at least once daily. Do not take a tub bath, sit in a hot tub or go into a swimming pool until after your first recheck in the office. SPECIAL CARE INSTRUCTIONS: VERY IMPORTANT TO READ AND REVIEW A. Your surgical incision has been closed with a cosmetic suture under the skin that will dissolve in about 6 weeks. In 14 days, you can use a pair of clean scissors and cut the suture that is left outside of the skin at the ends of your incision. 1. The small skin tapes can be removed 7 days after surgery if they have not fallen off by that point. 2. You may keep the wound open to air as much as possible to promote healing after post-op day number 5 unless told otherwise by your doctor. 3. If you think the wound looks like it is becoming infected (redness or worsening drainage) and/or you are experiencing fever, chill or worsening back pain and muscle spasms, contact the office so that we may evaluate you as soon as possible. B. Complications are uncommon, but please contact us if you have any signs or symptoms of: 1. wound infection (fever higher than 102.5 degrees F, redness, separation of wound, drainage, or increasing pain from the incision) 2. blood clots in legs (pain, swelling, redness and warmth in legs) 3. urinary tract infection (fever higher than 102.5 degrees F, burning upon urination or increased frequency of urination) 4. nerve problems (inability to walk on your toes or heels, numbness, loss of bowel or bladder control) 5. any other symptoms that concern you C. Please call the office at if you have any concerns or questions about your operation or recovery. D. No smoking! Smoking drastically decreases the chance of a solid fusion. E. Do not take any anti-inflammatory medications (Indocin, Advil, Motrin, Aspirin, Naprosyn, etc.) as these may inhibit the chance of a solid fusion. Tylenol is okay to take for pain. MANAGING PAIN AFTER SPINAL SURGERY 1. Narcotic medication is intended for short-term use and will be provided for surgical pain. Surgical pain usually lasts for a period of 4-6 weeks. Narcotic medication includes Percocet, Vicodin, Darvocet, Tylenol #3 or Lortab. 2. Longer-term pain is more appropriately treated with non-narcotic medication such as Tylenol ES. 3. Muscle spasm is not appropriately treated with narcotics. Muscle relaxers such as Soma, Flexeril or Skelaxin can be used along with Tylenol ES. 4. Remember that we all live with some "aches and pains". This is not unusual or uncommon after an injury or as we get older. a. Back pain is expected and may include muscle spasms for 4 to 6 weeks after surgery. The pain should gradually improve. If the pain worsens for no apparent reason, please contact the office. b. Intermittent leg pain may also be experienced and should not be concerned about unless it worsens for no apparent reason. If so, please contact the office. 5. We will provide appropriate medication within the normal guidelines of their prescribed use. We will also be very cautious and aware of potential abuse and extended duration of patients' medication needs. a. Pain medications are for your comfort and to assist with sleep and rest so that the tissue can heal. They are not provided in order to return to normal activity and should not be used through the day. To do so or worsening pain at night can result from ongoing tissue damage and development of tolerance to the prescribed medicine. 6. Please allow 2-3 days to process refills. Prescriptions will not be mailed but must be picked up at the office. FOLLOW UP VISIT: Keep your scheduled follow-up appointment. Any questions, please call the office at . Pending Studies at Discharge: No Stand-Alone Forms: My [facility] [employer], Smoking Cessation Medications and DC Order Prescriptions: New tramadol 50 mg tablet 50 mg PO Q6H PRN (Reason: pain, moderate) Qty: 30 RF: 0 oxycodone 5 mg tablet 5 mg PO Q6H PRN (Reason: pain, severe) Qty: 30 RF: 0 Continued fluoxetine 40 mg capsule 40 mg PO QAM RF: 0 sumatriptan succinate 100 mg tablet 100 mg PO UD PRN (Reason: Migraine Headache) RF: 0 propranolol 80 mg tablet 80 mg PO QAM RF: 0 multivitamin Tablet 1 tab PO QAM RF: 0 Discontinued etodolac 200 mg Capsule 200 mg PO BID RF: 0 Discharge Orders: Discharge Order (Routine); Ordered 09/16/20 Ordered By: Shaun Ac Admission Data Admit Date/Time: 09/13/20 14:31 Attending Provider: Shaun Ac Admit Provider: Shaun Ac Primary Care Provider: Prasad Esparza
== END 2020-09-16 10:21 | disposition home or self-care (01) | DRG 455 ==
LOC: ASU 09:22 → 3E 14:31